=== PATIENT | female | born 1940 | race Caucasian/White ===

== ENCOUNTER 2023-01-26 16:43 | Inpatient (IN) | payer MEDICARE ==
[2023-01-26] MEDS ORDERED: SODIUM CHLORIDE 0.9% 1,000 ML IV ONE (16:58)
[2023-01-26] MEDS ORDERED: ASPIRIN 325 MG TAB PO STA (16:58)
--- NOTE | 2023-01-26 17:11 | ED ---
General Adult HPI - General Chief complaint: Chest Pain Stated complaint: ENT/blood pressure Time Seen by Provider: 01/26/23 16:50 Source: patient, RN notes reviewed Mode of arrival: ambulatory Limitations: no limitations - History of Present Illness Initial comments: 82 year old female with no significant past medical history presents to the emergency department with a chief complaint of chest pain. She reports she was at the store at approximately 3PM when she felt a brief episode of sharp chest pain, dizziness, and sweating after carrying in the groceries. She reports she is currently having the chest pain however describes it as a tightness and rates it a 5/10 and feels a tightness in her throat. She reports the sensation at rest. Denies known cardiac history. Patient is a non-smoker - Related Data Home Medications Medication Instructions Recorded Confirmed Aspirin EC [Ecotrin Low Dose] 81 mg PO DAILY 01/26/23 01/26/23 Betamethasone Dipropionate 1 applic TOPICAL BID PRN 01/26/23 01/26/23 [Diprolene AF 0.05% Cream] Cholecalciferol [Vitamin D3 (25 25 mcg PO DAILY 01/26/23 01/26/23 Mcg = 1000 Iu)] Cinnamon Bark [Cinnamon] 500 mg PO DAILY 01/26/23 01/26/23 Cyanocobalamin (Vitamin B-12) 1,000 mcg PO DAILY 01/26/23 01/26/23 [Vitamin B-12] Levothyroxine Sodium [Synthroid] 100 mcg PO DAILY 01/26/23 01/26/23 Ubidecarenone [Coenzyme Q10] 200 mg PO DAILY 01/26/23 01/26/23 Allergies Allergy/AdvReac Type Severity Reaction Status Date / Time No Known Allergies Allergy Verified 01/26/23 18:35 Review of Systems ROS Statement: Those systems with pertinent positive or pertinent negative responses have been documented in the HPI. ROS Other: All systems not noted in ROS Statement are negative. Past Medical History Past Medical History: Thyroid Disorder History of Any Multi-Drug Resistant Organisms: None Reported Past Surgical History: No Surgical Hx Reported Past Psychological History: No Psychological Hx Reported Smoking Status: Never smoker Past Alcohol Use History: Occasional Past Drug Use History: None Reported General Exam Limitations: no limitations General appearance: alert Head exam: Present: atraumatic, normocephalic, normal inspection Eye exam: Present: normal appearance, PERRL, EOMI. Absent: scleral icterus, conjunctival injection, periorbital swelling ENT exam: Present: normal exam, mucous membranes moist Neck exam: Present: normal inspection. Absent: tenderness, meningismus, lymphad enopathy Respiratory exam: Present: normal lung sounds bilaterally. Absent: respiratory distress, wheezes, rales, rhonchi, stridor Cardiovascular Exam: Present: regular rate, normal rhythm, normal heart sounds. Absent: systolic murmur, diastolic murmur, rubs, gallop, clicks GI/Abdominal exam: Present: soft, normal bowel sounds. Absent: distended, tenderness, guarding, rebound, rigid Extremities exam: Present: normal inspection, full ROM, normal capillary refill. Absent: tenderness, pedal edema, joint swelling, calf tenderness Back exam: Present: normal inspection Neurological exam: Present: alert, oriented X3, CN II-XII intact Psychiatric exam: Present: normal affect, normal mood Skin exam: Present: warm, dry, intact, normal color. Absent: rash Course Vital Signs 01/26/23 01/26/23 01/26/23 16:45 18:00 19:00 Temperature 97.7 F Pulse Rate 70 72 Respiratory 20 18 Rate Blood Pressure 139/86 151/88 150/90 O2 Sat by Pulse 99 94 L 95 Oximetry - Reevaluation(s) Reevaluation #1: 01/26/23 18:06 Patient re-evaluated. Patient reports chest tightness and pain in between her sh oulder blades Reevaluation #2: 01/26/23 18:[address] Pantoja who recommends giving the patient nitroglycerin and to wait until Ct angiogram results Reevaluation #3: 01/26/23 19:13 Pt re-evaluated. Patient reports symptomatic relief status post 1 Nitroglycerin. She is agreeable with the plan for admission. Reevaluation #4: 01/26/23 19:[address] Foy who agrees and accepts the patient for admission EKG Findings - EKG Comments: EKG Findings:: I interpreted the following: EKG performed at 16:56 rate 71 BPM, sinus rhythm. 1st degree block, RBBB. [place] interval 281, QRS duration 148, Qt/Qtc 412/436 Medical Decision Making - Medical Decision Making Was pt. sent in by a medical professional or institution (LESLIE Leija, [employer]IST[employer], urgent care, hospital, or [facility]...) When possible be specific @ -[No] Did you speak to anyone other than the patient for history (EMS, parent, family, police, friend...)? What history was obtained from this source @ -[No] Did you review nursing and triage notes (agree or disagree)? Why? @ -[I reviewed and agree with nursing and triage notes] Were old charts reviewed (outside hosp., previous admission, EMS record, old EKG, old radiological studies, urgent care reports/EKG's, [facility] records)? Report findings @ -[No old charts were reviewed] Differential Diagnosis (chest pain, altered mental status, abdominal pain women, abdominal pain men, vaginal bleeding, weakness, fever, dyspnea, syncope, headache, dizziness, GI bleed, back pain, seizure, CVA, palpatations, mental health, musculoskeletal)? @ -[not applicable] EKG interpreted by me (3pts min.). @ -[As above] X-rays interpreted by me (1pt min.). @ -Chest x-ray reveals cardiomegaly and COPD changes CT interpreted by me (1pt min.). @ -CT angiogram to rule out PE is negative for pulmonary embolism U/S interpreted by me (1pt. min.). @ -[None done] What testing was considered but not performed or refused? (CT, X-rays, U/S, labs)? Why? @ -[None] What meds were considered but not given or refused? Why? @ -[None] Did you discuss the management of the patient with other professionals (professionals i.e. LESLIE Leija, [employer] MEDICAL ASSISTANT, lab, RT, psych nurse, health and social care teacher, hollow tile partition erector, teacher, public health officer, caser in)? Give summary @ -Case discussed with Dr. Pantoja who recommends giving the patient nitroglycerin. Case discussed with Dr. Foy, [facility] who agrees and accepts the patient for admission with consult to cardiology Was smoking cessation discussed for >3mins.? @ -[No] Was critical care preformed (if so, how long)? @ -[No] Were there social determinants of health that impacted care today? How? (Homelessness, low income, unemployed, alcoholism, drug addiction, transportation, low edu. Level, literacy, decrease access to med. care, assisted, rehab)? @ -[No] Was there de-escalation of care discussed even if they declined (Discuss DNR or withdrawal of care, Hospice)? DNR status @ -[No] What co-morbidities impacted this encounter? (DM, HTN, Smoking, COPD, CAD, Cancer, CVA, ARF, Chemo, Hep., AIDS, mental health diagnosis, sleep apnea, morb id obesity)? @ -[None] Was patient admitted / discharged? Hospital course, mention meds given and route, prescriptions, significant lab abnormalities, going to OR and other pertinent info. @ -[Admission. This is a pleasant 82-year-old female with no significant past medical history presents to the emergency department with chest pain. Patient had a thorough history and physical Performed on the emergency department. Physical exam is essentially unremarkable. Heart rate regular rate and rhythm, lungs clear to auscultation bilaterally, abdomen soft and nontender. Vital signs remained stable. Patient had lab work and imaging performed which revealed: WBC 7.9, hemoglobin 11.9 d-dimer is 2.8 to sodium 134, potassium 3.7 BUN 14, creatinine 0.59 initial troponin is 0.282 BNP is 530 Covid influenza and RSV testing negative. Chest x-ray is reveals cardiomegaly with interstitial lung disease and COPD changes I discussed the results in detail with the patient verbalized understanding all questions were addressed. She is agreeable with the plan for admission for further observation and consult to cardiology. Case discussed with [facility] who agrees and accepts the patient. Patient was given aspirin, nitroglycerin, 1 L of IV fluids with symptomatic relief in the emergency department. She'll be admitted for trending troponin value and cardiology evaluation. Case discussed with ODILIA Hill who agrees with plan of care Undiagnosed new problem with uncertain prognosis? @ -[No] Drug Therapy requiring intensive monitoring for toxicity (Heparin, Nitro, Ins ulin, Cardizem)? @ -[No] Were any procedures done? @ -[No] Diagnosis/symptom? @ -Chest Pain -Non-STEMI - Right Bundle Branch Block Acute, or Chronic, or Acute on Chronic? @ -Acute Uncomplicated (without systemic symptoms) or Complicated (systemic symptoms)? @ -Complicated Side effects of treatment? @ -[No] Exacerbation, Progression, or Severe Exacerbation? @ -[No] Poses a threat to life or bodily function? How? (Chest pain, [place], [place], pneumonia, PE, COPD, DKA, ARF, appy, cholecystitis, CVA, Diverticulitis, Homicidal, Suicidal, threat to staff... and all critical care pts) @ -High likelihood - Lab Data Result diagrams: 01/26/23 19:40 01/26/23 17:07 Lab Results 01/26/23 01/26/23 01/26/23 Range/Units 17:07 17:07 17:07 WBC 7.9 (3.8-10.6) k/uL RBC 3.92 (3.80-5.40) m/uL Hgb 11.9 (11.4-16.0) gm/dL Hct 35.1 (34.0-46.0) % MCV 89.7 (80.0-100.0) fL MCH 30.3 (25.0-35.0) pg MCHC 33.8 (31.0-37.0) g/dL RDW 15.6 H (11.5-15.5) % Plt Count 226 (150-450) k/uL MPV 8.9 Neutrophils % 70 % Lymphocytes % 17 % Monocytes % 5 % Eosinophils % 6 % Basophils % 0 % Neutrophils # 5.5 (1.3-7.7) k/uL Lymphocytes # 1.4 (1.0-4.8) k/uL Monocytes # 0.4 (0-1.0) k/uL Eosinophils # 0.5 (0-0.7) k/uL Basophils # 0.0 (0-0.2) k/uL PT 9.9 (9.0-12.0) sec INR 0.9 (<1.2) APTT 21.3 L (22.0-30.0) sec D-Dimer 2.82 H (<0.60) mg/L FEU Sodium 134 L (137-145) mmol/L Potassium 3.7 (3.5-5.1) mmol/L Chloride 99 (98-107) mmol/L Carbon Dioxide 25 (22-30) mmol/L Anion Gap 10 mmol/L BUN 14 (7-17) mg/dL Creatinine 0.59 (0.52-1.04) mg/dL Est GFR (CKD-EPI)AfAm >90 (>60 ml/min/1.73 sqM) Est GFR (CKD-EPI)NonAf 85 (>60 ml/min/1.73 sqM) Glucose 130 H (74-99) mg/dL Calcium 10.0 (8.4-10.2) mg/dL Magnesium 2.1 (1.6-2.3) mg/dL Total Bilirubin 0.5 (0.2-1.3) mg/dL AST 37 H (14-36) U/L ALT 24 (4-34) U/L Alkaline Phosphatase 86 (38-126) U/L Troponin I (0.000-0.034) ng/mL NT-Pro-B Natriuret Pep pg/mL Total Protein 7.7 (6.3-8.2) g/dL Albumin 4.4 (3.5-5.0) g/dL Influenza Type A (PCR) (Not Detectd) Influenza Type B (PCR) (Not Detectd) RSV (PCR) (Not Detectd) SARS-CoV-2 (PCR) (Not Detectd) 01/26/23 01/26/23 01/26/23 Range/Units 17:07 17:07 17:07 WBC (3.8-10.6) k/uL RBC (3.80-5.40) m/uL Hgb (11.4-16.0) gm/dL Hct (34.0-46.0) % MCV (80.0-100.0) fL MCH (25.0-35.0) pg MCHC (31.0-37.0) g/dL RDW (11.5-15.5) % Plt Count (150-450) k/uL MPV Neutrophils % % Lymphocytes % % Monocytes % % Eosinophils % % Basophils % % Neutrophils # (1.3-7.7) k/uL Lymphocytes # (1.0-4.8) k/uL Monocytes # (0-1.0) k/uL Eosinophils # (0-0.7) k/uL Basophils # (0-0.2) k/uL PT (9.0-12.0) sec INR (<1.2) APTT (22.0-30.0) sec D-Dimer (<0.60) mg/L FEU Sodium (137-145) mmol/L Potassium (3.5-5.1) mmol/L Chloride (98-107) mmol/L Carbon Dioxide (22-30) mmol/L Anion Gap mmol/L BUN (7-17) mg/dL Creatinine (0.52-1.04) mg/dL Est GFR (CKD-EPI)AfAm (>60 ml/min/1.73 sqM) Est GFR (CKD-EPI)NonAf (>60 ml/min/1.73 sqM) Glucose (74-99) mg/dL Calcium (8.4-10.2) mg/dL Magnesium (1.6-2.3) mg/dL Total Bilirubin (0.2-1.3) mg/dL AST (14-36) U/L ALT (4-34) U/L Alkaline Phosphatase (38-126) U/L Troponin I 0.282 H* (0.000-0.034) ng/mL NT-Pro-B Natriuret Pep 530 pg/mL Total Protein (6.3-8.2) g/dL Albumin (3.5-5.0) g/dL Influenza Type A (PCR) Not Detected (Not Detectd) Influenza Type B (PCR) Not Detected (Not Detectd) RSV (PCR) Not Detected (Not Detectd) SARS-CoV-2 (PCR) Not Detected (Not Detectd) 01/26/23 01/26/23 Range/Units 19:40 19:40 WBC 8.1 (3.8-10.6) k/uL RBC 3.61 L (3.80-5.40) m/uL Hgb 10.4 L (11.4-16.0) gm/dL Hct 32.3 L (34.0-46.0) % MCV 89.4 (80.0-100.0) fL MCH 28.9 (25.0-35.0) pg MCHC 32.3 (31.0-37.0) g/dL RDW 15.5 (11.5-15.5) % Plt Count 222 (150-450) k/uL MPV 9.7 Neutrophils % 80 % Lymphocytes % 12 % Monocytes % 5 % Eosinophils % 2 % Basophils % 0 % Neutrophils # 6.4 (1.3-7.7) k/uL Lymphocytes # 1.0 (1.0-4.8) k/uL Monocytes # 0.4 (0-1.0) k/uL Eosinophils # 0.2 (0-0.7) k/uL Basophils # 0.0 (0-0.2) k/uL PT 10.3 (9.0-12.0) sec INR 1.0 (<1.2) APTT 20.2 L (22.0-30.0) sec D-Dimer (<0.60) mg/L FEU Sodium (137-145) mmol/L Potassium (3.5-5.1) mmol/L Chloride (98-107) mmol/L Carbon Dioxide (22-30) mmol/L Anion Gap mmol/L BUN (7-17) mg/dL Creatinine (0.52-1.04) mg/dL Est GFR (CKD-EPI)AfAm (>60 ml/min/1.73 sqM) Est GFR (CKD-EPI)NonAf (>60 ml/min/1.73 sqM) Glucose (74-99) mg/dL Calcium (8.4-10.2) mg/dL Magnesium (1.6-2.3) mg/dL Total Bilirubin (0.2-1.3) mg/dL AST (14-36) U/L ALT (4-34) U/L Alkaline Phosphatase (38-126) U/L Troponin I (0.000-0.034) ng/mL NT-Pro-B Natriuret Pep pg/mL Total Protein (6.3-8.2) g/dL Albumin (3.5-5.0) g/dL Influenza Type A (PCR) (Not Detectd) Influenza Type B (PCR) (Not Detectd) RSV (PCR) (Not Detectd) SARS-CoV-2 (PCR) (Not Detectd) Disposition Clinical Impression: Chest pain, Non-STEMI (non-ST elevated myocardial infarction), Right bundle branch block (RBBB) Disposition: ADMITTED IP TO THIS HOSP Condition: Stable Time of Disposition: 19:05
[2023-01-26 17:21] LABS: Basophils % (A) 0 %; Eosinophils # (A) 0.5 k/uL (0-0.7); Eosinophils % (A) 6 %; HCT 35.1 % (34.0-46.0); HGB 11.9 gm/dL (11.4-16.0); Lymphocytes # (A) 1.4 k/uL (1.0-4.8); Lymphocytes % (A) 17 %; MCH 30.3 pg (25.0-35.0); MCHC 33.8 g/dL (31.0-37.0); MCV 89.7 fL (80.0-100.0); Mean Platelet Volume 8.9; Monocytes # (A) 0.4 k/uL (0-1.0); Monocytes % (A) 5 %; Neutrophils # (A) 5.5 k/uL (1.3-7.7); Neutrophils % (A) 70 %; Platelet Count 226 k/uL (150-450); RBC 3.92 m/uL (3.80-5.40); RDW 15.6 % (11.5-15.5); WBC 7.9 k/uL (3.8-10.6)
[2023-01-26 17:33] LABS: ALT 24 U/L (4-34); AST 37 U/L (14-36); African American GFR (CKD) >90 (>60 ml/min/1.73 sqM); Albumin 4.4 g/dL (3.5-5.0); Alkaline Phosphatase 86 U/L (38-126); Anion Gap 10 mmol/L; Blood Urea Nitrogen 14 mg/dL (7-17); Carbon Dioxide 25 mmol/L (22-30); Chloride 99 mmol/L (98-107); Glucose 130 mg/dL (74-99); Magnesium 2.1 mg/dL (1.6-2.3); Non-African American GFR(CKD) 85 (>60 ml/min/1.73 sqM); Potassium 3.7 mmol/L (3.5-5.1); Sodium 134 mmol/L (137-145); Total Bilirubin 0.5 mg/dL (0.2-1.3); Total Protein 7.7 g/dL (6.3-8.2)
[2023-01-26 17:43] LABS: INR 0.9 (<1.2); Prothrombin Time 9.9 sec (9.0-12.0)
--- NOTE | 2023-01-26 17:47 | XR ---
EXAMINATION TYPE: XR chest 2V DATE OF EXAM: 01/26/2023 5:22 PM COMPARISON: None TECHNIQUE: XR chest 2V Frontal and lateral views of the chest. CLINICAL INDICATION:Female, 82 years old with history of CP; FINDINGS: Lungs/Pleura: Prominent interstitial lung markings are seen scattered throughout the lungs with jonathon ening of the diaphragm and increased lucency of the lung apices. No evidence of focal consolidation, pneumothorax or pleural effusion. Pulmonary vascularity: Unremarkable. Heart/mediastinum: Cardiomediastinal silhouette is enlarged and stable. Atherosclerotic calcificatio ns are seen in the aorta. Musculoskeletal: No acute osseous pathology. IMPRESSION: 1. No acute cardiopulmonary disease/process. 2. And interstitial lung disease with COPD change 3. Cardiomegaly
[2023-01-26 17:55] LABS: Partial Thromboplastin Time 21.3 sec (22.0-30.0)
[2023-01-26] MEDS ORDERED: HEPARIN SODIUM 1,000 UN/ML (10ML VL) IV PRN ×2 (18:05→19:13)
[2023-01-26] MEDS ORDERED: HEPARIN SODIUM 1,000 UN/ML (10ML VL) IV ONE ×2 (18:05→19:13)
[2023-01-26] MEDS ORDERED: NITROGLYCERIN SL TABS 0.4 MG TAB SUBLINGUAL PRN (18:09)
[2023-01-26] MEDS ORDERED: HEPARIN SOD,PORK IN 0.45% NACL 25,000 UNIT in 0.45% NACL 1 250ML.BAG IV SCH ×2 (18:15→19:15)
--- NOTE | 2023-01-26 18:56 | CT ---
EXAMINATION TYPE: CT chest angio for PE CT DLP: 223.2 mGycm, Automated exposure control for dose reduction was used. DATE OF EXAM: 01/26/2023 6:29 PM COMPARISON: Chest radiograph from same day. CLINICAL INDICATION:Female, 82 years old with history of Dimer 2.82; Chest pain and pressure, was pearl phoretic earlier and felt like passing out, elevated d-dimer, no personal cardiac hx TECHNIQUE/CONTRAST: CTA scan of the thorax is performed with IV Contrast, patient injected with 100 mL of Isovue 370, pul monary embolism protocol. MIP images are created and reviewed [facility] FINDINGS: Pulmonary Artery: There is no evidence for a filling defect within the pulmonary vasculature to sugge st acute pulmonary embolism. The pulmonary artery is of normal size. Lungs/Pleura: Centrally calcified granuloma in the lingula. Interlobular septal thickening is noted.. No evidence of focal consolidation, pleural effusion or pneumothorax. Airway: Large airways are patent. Heart: Heart is within normal limits for size. Vasculature: No evidence of aortic aneurysm. There is a moderate to large hiatal hernia containing a majority of the stomach. Mediastinum: No gross evidence of adenopathy. Musculoskeletal: Moderate degenerative disc disease changes are present throughout the thoracolumbar spine. Soft Tissues: Unremarkable. Lower neck: No significant findings. Upper Abdomen: Somewhat nodular contour to liver. IMPRESSION: 1. No evidence of pulmonary embolism. 2. Moderate to large hiatal hernia the majority of the stomach. 3. Cardiomegaly with pulmonary vascular congestion correlate with serum BNP for congestive heart fail ure exacerbation. 4. Centrally calcified lingula granuloma.
[2023-01-26] MEDS ORDERED: MORPHINE SULFATE 4 MG/ML SYRINGE IV PRN (19:33)
[2023-01-26] MEDS ORDERED: NALOXONE 0.4 MG/ML 1 ML VIAL IV PRN (19:33)
[2023-01-26 20:17] LABS: Basophils % (A) 0 %; Eosinophils # (A) 0.2 k/uL (0-0.7); Eosinophils % (A) 2 %; HCT 32.3 % (34.0-46.0); HGB 10.4 gm/dL (11.4-16.0); Lymphocytes % (A) 12 %; MCH 28.9 pg (25.0-35.0); MCHC 32.3 g/dL (31.0-37.0); MCV 89.4 fL (80.0-100.0); Mean Platelet Volume 9.7; Monocytes # (A) 0.4 k/uL (0-1.0); Monocytes % (A) 5 %; Neutrophils # (A) 6.4 k/uL (1.3-7.7); Neutrophils % (A) 80 %; Platelet Count 222 k/uL (150-450); RBC 3.61 m/uL (3.80-5.40); RDW 15.5 % (11.5-15.5); WBC 8.1 k/uL (3.8-10.6)
[2023-01-26 20:37] LABS: Prothrombin Time 10.3 sec (9.0-12.0)
[2023-01-26 20:55] LABS: Partial Thromboplastin Time 20.2 sec (22.0-30.0)
[2023-01-26] MEDS: SODIUM CHLORIDE 0.9% 1,000 ML IV SCH (22:52)
[2023-01-27 02:58] LABS: Basophils % (A) 0 %; Eosinophils # (A) 0.1 k/uL (0-0.7); Eosinophils % (A) 2 %; HCT 34.3 % (34.0-46.0); HGB 11.3 gm/dL (11.4-16.0); Hypochromasia Slight; Lymphocytes % (A) 13 %; MCH 30.3 pg (25.0-35.0); MCHC 32.9 g/dL (31.0-37.0); Mean Platelet Volume 9.2; Monocytes # (A) 0.3 k/uL (0-1.0); Monocytes % (A) 4 %; Neutrophils # (A) 6.3 k/uL (1.3-7.7); Neutrophils % (A) 79 %; Platelet Count 200 k/uL (150-450); RBC 3.73 m/uL (3.80-5.40); RDW 15.7 % (11.5-15.5); WBC 7.9 k/uL (3.8-10.6)
[2023-01-27 03:11] LABS: Partial Thromboplastin Time 63.9 sec (22.0-30.0); Prothrombin Time 10.6 sec (9.0-12.0)
[2023-01-27] MEDS ORDERED: HEPARIN SODIUM,PORCINE 10,000 UNIT in SODIUM CHLORIDE 0.9% 1,000 ML IRRIGATION PRN (07:00)
[2023-01-27] MEDS ORDERED: HEPARIN SODIUM,PORCINE 2,500 UNIT in SODIUM CHLORIDE 0.9% 250 ML IRRIGATION PRN (07:00)
[2023-01-27] MEDS ORDERED: ATORVASTATIN 80 MG TAB PO STA (08:54)
[2023-01-27] MEDS ORDERED: ASPIRIN 325 MG TAB PO STA (08:54)
[2023-01-27] MEDS ORDERED: NITROGLYCERIN SL TABS 0.4 MG TAB SUBLINGUAL PRN (08:54)
[2023-01-27] MEDS ORDERED: ALPRAZolam 0.25 MG TAB PO PRN (08:54)
[2023-01-27] MEDS ORDERED: ALPRAZolam 0.5 MG TAB PO PRN (08:54)
[2023-01-27] MEDS: ASPIRIN 81 MG PO SCH (09:10)
[2023-01-27] MEDS: SODIUM CHLORIDE 0.9% 1,000 ML IV SCH ×2 (09:10→20:40)
--- NOTE | 2023-01-27 09:17 | P.CRDCN ---
History of Present Illness History of present illness: HISTORY OF PRESENT ILLNESS: This is a 82-year-old female with a past medical history significant for hypothyroidism. Patient does not follow with a bow maker. We have been asked to see the patient in consultation for chest pain. Patient examined at the bedside. Patient resides in [place] and is up here helping a family member. She states yesterday she was at the grocery store with her [id number]. She states afterward she was carrying groceries inside the house when she be and have chest pain. She states the pain was in the middle of her chest and went up into her throat. She reports feeling diaphoretic. She reported having nausea but no vomiting. She states that she called her daughter and came to the emergency room for further evaluation. She received aspirin and nitro in the ER. She denies any chest pain or pressure this morning. She denies any history of coronary artery disease. She is a former cigarette smoker and quit smoking in 1964. She denies history of hypertension, hyperlipidemia, or diabetes. * EKG reveals sinus mechanism with right bundle branch block. No signs of acute ischemia. * Chest xray no acute cardiopulmonary disease or process. Interstitial lung disease with COPD changes. Cardiomegaly * Laboratory data: WBC 7.9. WBC 11.3. Platelet count 200. D-dimer 2.82. Sodium 134. Potassium 3.7. BUN 14. Creatinine 0.59. Troponin 0.282. 5.320. 10.100. ProBNP 530. * Current home cardiac medications include aspirin 81 mg daily REVIEW OF SYSTEMS: At the time of my exam: CONSTITUTIONAL: Denies fever or chills. HEENT: Denies blurred vision, vision changes, or eye pain. Denies hemoptysis CARDIOVASCULAR: Denies chest pain. Denies orthopnea. Denies PND. Denies palpitations RESPIRATORY: Denies shortness of breath. GASTROINTESTINAL: Denies abdominal pain. Denies nausea or vomiting. HEMATOLOGIC: Denies bleeding disorders. GENITOURINARY: Denies any blood in urine. SKIN: Denies pruitis. Denies rash. PHYSICAL EXAM: VITAL SIGNS: Reviewed. GENERAL: Well-developed in no acute distress. HEENT: Head is normocephalic. Pupils are equal, round. Sclerae anicteric. Mucous membranes of the mouth are moist. Neck supple. No JVD or thyromegaly LUNGS: Respirations even and unlabored. Lungs essentially clear to auscultation bilaterally. HEART: Regular rate and rhythm. S1 and S2 heard. ABDOMEN: Soft. Nondistended. Nontender. EXTREMITIES: Normal range of motion. No clubbing or cyanosis. Peripheral pulses intact. No lower extremity edema NEUROLOGIC: Awake and alert. Oriented x 3. ASSESSMENT: Non-STEMI Hypothyroidism Former nicotine dependence, patient quit smoking in 1964 PLAN: Obtain 2-D echo to assess cardiac structure and function Continue IV heparin Add aspirin 81 mg daily, Lipitor 80 mg at night, and metoprolol tartrate 12.5 mg twice a day Patient to undergo cardiac catheterization today with Dr. Fajardo Further recommendations pending patient's course Nurse practitioner note has been reviewed by physician. Signing provider agrees with the documented findings, assessment, and plan of care. Past Medical History Past Medical History: Thyroid Disorder History of Any Multi-Drug Resistant Organisms: None Reported Past Surgical History: Breast Surgery, Hysterectomy Additional Past Surgical History / Comment(s): hemorrhoids Past Anesthesia/Blood Transfusion Reactions: No Reported Reaction Past Psychological History: No Psychological Hx Reported Smoking Status: Never smoker Past Alcohol Use History: Occasional Past Drug Use History: None Reported - Past Family History Father Family Medical History: Myocardial Infarction ([place]) Medications and Allergies Home Medications Medication Instructions Recorded Confirmed Type Aspirin EC [Ecotrin Low Dose] 81 mg PO DAILY 01/26/23 01/26/23 History Betamethasone Dipropionate 1 applic TOPICAL BID PRN 01/26/23 01/26/23 History [Diprolene AF 0.05% Cream] Cholecalciferol [Vitamin D3 (25 25 mcg PO DAILY 01/26/23 01/26/23 History Mcg = 1000 Iu)] Cinnamon Bark [Cinnamon] 500 mg PO DAILY 01/26/23 01/26/23 History Cyanocobalamin (Vitamin B-12) 1,000 mcg PO DAILY 01/26/23 01/26/23 History [Vitamin B-12] Levothyroxine Sodium [Synthroid] 100 mcg PO DAILY 01/26/23 01/26/23 History Ubidecarenone [Coenzyme Q10] 200 mg PO DAILY 01/26/23 01/26/23 History Allergies Allergy/AdvReac Type Severity Reaction Status Date / Time No Known Allergies Allergy Verified 01/26/23 18:35 Physical Exam Vitals: Vital Signs Temp Pulse Pulse Resp BP BP Pulse Ox 01/27/23 04:00 70 17 126/73 93 L 01/27/23 00:58 97.8 F 74 16 144/84 94 L 01/26/23 22:00 71 16 132/86 01/26/23 21:00 137/81 90 L 01/26/23 20:00 135/82 01/26/23 19:00 150/90 95 01/26/23 18:00 72 18 151/88 94 L 01/26/23 16:45 97.7 F 70 20 139/86 99 Intake and Output 01/26/23 01/27/23 01/27/23 22:59 06:59 14:59 Other: Voiding Method Toilet # Voids 1 Weight 61.235 kg 61.235 kg Results 01/27/23 02:24 01/26/23 17:07 Cardiac Enzymes 01/26/23 01/26/23 01/26/23 Range/Units 17:07 17:07 21:00 AST 37 H (14-36) U/L Troponin I 0.282 H* 5.320 H* (0.000-0.034) ng/mL 01/27/23 Range/Units 00:20 AST (14-36) U/L Troponin I 10.100 H* (0.000-0.034) ng/mL Coagulation 01/26/23 01/26/23 01/27/23 Range/Units 17:07 19:40 02:24 PT 9.9 10.3 10.6 (9.0-12.0) sec APTT 21.3 L 20.2 L 63.9 H (22.0-30.0) sec CBC 01/26/23 01/26/23 01/27/23 Range/Units 17:07 19:40 02:24 WBC 7.9 8.1 7.9 (3.8-10.6) k/uL RBC 3.92 3.61 L 3.73 L (3.80-5.40) m/uL Hgb 11.9 10.4 L 11.3 L (11.4-16.0) gm/dL Hct 35.1 32.3 L 34.3 (34.0-46.0) % Plt Count 226 222 200 (150-450) k/uL Comprehensive Metabolic Panel 01/26/23 Range/Units 17:07 Sodium 134 L (137-145) mmol/L Potassium 3.7 (3.5-5.1) mmol/L Chloride 99 (98-107) mmol/L Carbon Dioxide 25 (22-30) mmol/L BUN 14 (7-17) mg/dL Creatinine 0.59 (0.52-1.04) mg/dL Glucose 130 H (74-99) mg/dL Calcium 10.0 (8.4-10.2) mg/dL AST 37 H (14-36) U/L ALT 24 (4-34) U/L Alkaline Phosphatase 86 (38-126) U/L Total Protein 7.7 (6.3-8.2) g/dL Albumin 4.4 (3.5-5.0) g/dL Current Medications Generic Name Dose Route Start Last Admin Trade Name Freq PRN Reason Stop Dose Admin Aspirin 81 mg 01/27/23 09:00 Aspirin 81 Mg PO DAILY NILS Atorvastatin Calcium 80 mg 01/27/23 21:00 Atorvastatin 80 Mg Tab PO HS NILS Heparin Sodium (Porcine) 0 unit 01/26/23 19:13 Heparin Sodium 1,000 Un/Ml (10ml Vl) IV PER PROTOCOL PRN Low PTT Protocol Heparin Sodium/Sodium Chloride 250 mls @ 7.348 mls/hr 01/26/23 19:15 01/26/23 20:07 25,000 unit/ Sodium Chloride IV 12 units/kg/hr .Q24H NILS 7.348 mls/hr Administration Protocol 12 UNITS/KG/HR Sodium Chloride 1,000 mls @ 75 mls/hr 01/26/23 19:45 01/26/23 22:52 Saline 0.9% IV 75 mls/hr .[id number] NILS Administration Morphine Sulfate 4 mg 01/26/23 19:33 Morphine Sulfate 4 Mg/Ml Syringe IV Q4HR PRN Severe Pain (Scale 7 to 10) Naloxone HCl 0.2 mg 01/26/23 19:33 Naloxone 0.4 Mg/Ml 1 Ml Vial IV Q2M PRN Opioid Reversal Nitroglycerin 0.4 mg 01/26/23 18:09 01/26/23 18:31 Nitroglycerin Sl Tabs 0.4 Mg Tab SUBLINGUAL 0.4 mg Q5M PRN Administration Chest Pain Intake and Output 01/26/23 01/27/23 01/27/23 22:59 06:59 14:59 Other: Voiding Method Toilet # Voids 1 Weight 61.235 kg 61.235 kg 01/27/23 02:24 01/26/23 17:07
[2023-01-27] MEDS: METOPROLOL TARTRATE 12.5 MG TAB PO SCH ×2 (09:23→20:33)
[2023-01-27] MEDS: SODIUM CHLORIDE 0.9% 1,000 ML in EMPTY BAG 1 BAG IV SCH (09:24)
[2023-01-27] MEDS ORDERED: LIDOCAINE 1% INJ 10MG/ML (20 ML MDV) ONE (10:26)
[2023-01-27] MEDS ORDERED: VERAPAMIL 2.5 MG/ML 2 ML AMP ONE (10:26)
[2023-01-27] MEDS ORDERED: HEPARIN SODIUM 1,000 UN/ML (10ML VL) ONE (10:48)
[2023-01-27] MEDS ORDERED: IV FLUID CONTINUATION 1,000 ML IV ONE (11:00)
[2023-01-27] MEDS ORDERED: MIDAZOLAM 2 MG/2 ML VIAL IVP ONE (11:08)
[2023-01-27] MEDS ORDERED: LIDOCAINE 1% INJ 10MG/ML (5 ML VIAL-PF) SQ ONE (11:09)
[2023-01-27] MEDS ORDERED: VERAPAMIL SYRINGE (5 MG/10 ML) INTRAARTER ONE (11:11)
[2023-01-27] MEDS ORDERED: fentaNYL (PF) 50 MCG/ML 2 ML AMP ONE (11:11)
[2023-01-27] MEDS ORDERED: fentaNYL (PF) 50 MCG/ML 2 ML AMP IVP ONE (11:12)
[2023-01-27] MEDS ORDERED: HEPARIN SODIUM 1,000 UN/ML (10ML VL) IV ONE (11:12)
[2023-01-27] MEDS ORDERED: IOPAMIDOL-370 100ML BTL INJ ONE (11:41)
--- NOTE | 2023-01-27 11:53 | CA ---
Transthoracic Echo Report Name: Gema Gloria Age: 82 Gender: F : 1940 Exam Date: 01/27/2023 09:53 Exam Location: [facility] Ht (in): 61 Wt (lb): 135 Ordering Physician: Radha Salgado Attending/Referring Phys: [id number], Damian Engine Pilot Cora Montenegro RDCS Procedure CPT: Indications: CP, NSTEMI Cardiac Hx: Technical Quality: Good Contrast 1: Total Dose (mL): Contrast 2: Total Dose (mL): MEASUREMENTS (Male / Female) Normal Values 2D ECHO LV Diastolic Diameter PLAX 4.3 cm 4.2 - 5.9 / 3.9 - 5.3 cm LV Systolic Diameter PLAX 2.6 cm IVS Diastolic Thickness 1.0 cm 0.6 - 1.0 / 0.6 - 0.9 cm LVPW Diastolic Thickness 1.0 cm 0.6 - 1.0 / 0.6 - 0.9 cm LV Relative Wall Thickness 0.5 RV Internal Dim ED PLAX 2.6 cm LVOT Diameter 1.9 cm Aortic Root Diameter 2.6 cm LA Systolic Diameter LX 2.4 cm 3.0 - 4.0 / 2.7 - 3.8 cm LV Diastolic Volume MOD BP 57.8 cm??? 67 - 155 / 56 - 104 cm??? LV Systolic Volume MOD BP 29.6 cm??? 22 - 58 / 19 - 49 cm??? LV Ejection Fraction MOD BP 48.7 % >= 55 % LV Diastolic Volume MOD 4C 67.3 cm??? LV Systolic Volume MOD 4C 29.7 cm??? LV Ejection Fraction MOD 4C 55.9 % LV Diastolic Length 4C 5.9 cm LV Systolic Length 4C 5.2 cm LV Diastolic Volume MOD 2C 43.9 cm??? LV Systolic Volume MOD 2C 23.8 cm??? LV Ejection Fraction MOD 2C 45.8 % LV Diastolic Length 2C 5.2 cm LV Systolic Length 2C 4.2 cm LA Volume 50.2 cm??? 18 - 58 / 22 - 52 cm??? Ascending Aorta Diameter 3.0 cm DOPPLER AV Peak Velocity 151.2 cm/s AV Peak Gradient 9.1 mmHg AI Peak Velocity 376.8 cm/s AI Peak Gradient 56.8 mmHg AI Pressure Half Time 478.5 ms LVOT Peak Velocity 97.1 cm/s LVOT Peak Gradient 3.8 mmHg AV Area Cont Eq pk 1.8 cm??? MV Peak Velocity 130.7 cm/s MV Peak Gradient 6.8 mmHg MV Mean Velocity 64.5 cm/s MV Mean Gradient 2.0 mmHg MV Velocity Time Integral 27.8 cm MR Peak Velocity 539.2 cm/s MR Peak Gradient 116.3 mmHg Mitral E Point Velocity 110.4 cm/s Mitral A Point Velocity 46.5 cm/s Mitral E to A Ratio 2.4 MV Deceleration Time 137.1 ms MV E' Velocity 8.2 cm/s Mitral E to MV E' Ratio 13.5 TR Peak Velocity 314.4 cm/s TR Peak Gradient 39.5 mmHg Right Ventricular Systolic Press 44.6 mmHg PV Peak Velocity 91.8 cm/s PV Peak Gradient 3.4 mmHg FINDINGS Left Ventricle Left ventricular ejection fraction is estimated at 50-55 %. Left ventricular cavity size normal. Left ventricular wall thickness normal. Basal inferior hypokinesis Right Ventricle Normal right ventricular size and function. Mild pulmonary hypertension. Right Atrium Normal right atrial size. Left Atrium Normal left atrial size. Mitral Valve Structurally normal mitral valve. Severe mitral regurgitation. Mitral annular calcification. Aortic Valve Trileaflet aortic valve. Mild aortic regurgitation. Tricuspid Valve Structurally normal tricuspid valve. moderate tricuspid regurgitation. Pulmonic Valve Structurally normal pulmonic valve. No pulmonic regurgitation. Pericardium Normal pericardium. No pericardial effusion. Aorta Normal size aortic root and proximal ascending aorta. CONCLUSIONS 1. Borderline left ventricle systolic function with inferobasal hypokinesis 2. Severe mitral regurgitation 3. Moderate tricuspid with mild aortic regurgitation. Previewed by: Dr. Rosa M Marin MD (Electronically Signed) Final Date: 27 January 2023 11:52
--- NOTE | 2023-01-27 12:45 | CC ---
CARDIAC CATHETERIZATION REPORT DATE OF SERVICE: 01/27/2023. PROCEDURES PERFORMED: Left heart catheterization, coronary angiography, and left ventriculography. PERFORMED BY: Dr. Tejal Fajardo. ANESTHESIA: Moderate conscious sedation time was 20 minutes. The patient was administered Versed and fentanyl. Oxygen saturation, hemodynamics, and EKG were monitored closely. CLINICAL INFORMATION: Ms. Gema Gloria is an 82-year-old lady with a history of hypothyroidism. She is a remarkably active lady, who is here visiting from [place] to help her sister, who had a knee surgery. She developed chest pain and shortness of breath yesterday and came into the hospital. Her D-dimer was elevated. Troponin was elevated. She had a CT angiogram, which was negative for pulmonary embolism. Troponin continued to show an upward trend up to 10.0. I saw her this morning. She was completely comfortable, hemodynamically stable, resting comfortably. Given the troponin rise after optimal hydration, I recommended coronary angiography in view of her [id number] ME. EKG revealed a sinus rhythm with a right bundle-branch block type pattern with IVCD. PROCEDURE NOTE: Under local anesthesia and strict aseptic precautions, a 6-Turkmen introducer was placed in the right radial artery. Using JL3.5 and JR4.0 catheters, I performed coronary angiography, and a pigtail catheter was used to check LV pressures, and LV-gram was performed in 30-degree BELL projection. The patient tolerated the procedure well without complication. The sheath was taken out, and TR band was applied as per protocol. Saturation in the fingers of the right hand was 95%. Details of the procedure and the results were discussed with the patient and family. CARDIAC CATHETERIZATION FINDINGS: The left ventricular end-diastolic pressure was 18 mmHg. There was no gradient across aortic valve. CORONARY ANGIOGRAPHY FINDINGS: RIGHT CORONARY ARTERY: Large dominant vessel, has minor irregularities, distally bifurcates into PDA and PLV. PLV is of a fair caliber, distally becomes a smaller vessel, minor irregularities. PDA in the [id number] section is totally occluded, seen as a flush occlusion. The caliber of the PDA is about 1.5 mm, and it is a distal/mid occlusion without much antegrade flow, and this may be the culprit lesion. LEFT MAIN CORONARY ARTERY: Short, patent vessel. No significant disease. Bifurcates into LAD and circumflex. LEFT ANTERIOR DESCENDING CORONARY ARTERY: Good-caliber vessel, gives off septal and diagonal branches, runs all the way to the apex, has minor irregularities, no significant disease. LEFT POSTERIOR CIRCUMFLEX CORONARY ARTERY: Nondominant vessel, fair-caliber vessel, gives off a distal obtuse marginal branch and then runs distally, has a small posterolateral branch. There is a left atrial circumflex branch that is free of significant disease. Circumflex is nondominant, has minor irregularities, no significant disease. LEFT VENTRICULOGRAM: This was performed in 30-degree BELL projection, revealed a normal-sized LV with [id number] mitral regurgitation and inferior wall hypokinesia involving the inferobasal and mid inferior wall. Ejection fraction is about 50% by visual inspection with moderate mitral regurgitation. IMPRESSION: This patient has a slightly elevated filling pressures. No gradient. She has a right- dominant system with total occlusion of the mid/distal posterior descending artery branch, small-caliber vessel of about 1.5 mm. No other significant disease in the left system. Ejection fraction is about 50% with inferior wall hypokinesia and moderate mitral regurgitation. RECOMMENDATIONS: Findings were discussed with the patient and her 3 daughters. I am recommending we will pursue medical therapy. The vessel is small. No intervention is necessary. The patient is hemodynamically stable and resting comfortably. My concern is mitral regurgitation. Hopefully, once she stabilizes and the infarct settles, she will be much better. We will, therefore, continue intravenous heparin and observe her carefully for the next 24 to 48 hours. We will also watch the progress of mitral regurgitation. Clinically, the patient is doing better. MMODL / IJN: [id number] /
[2023-01-27] MEDS ORDERED: ONDANSETRON 4 MG/2 ML VIAL IVP PRN (14:52)
[2023-01-27] MEDS ORDERED: guaiFENesin SYRUP 100MG/5ML 200 MG/10 ML CUP PO PRN (18:14)
[2023-01-27] MEDS ORDERED: HEPARIN SODIUM 1,000 UN/ML (10ML VL) IV PRN (18:20)
[2023-01-27] MEDS ORDERED: HEPARIN SOD,PORK IN 0.45% NACL 25,000 UNIT in 0.45% NACL 1 250ML.BAG IV SCH (18:30)
[2023-01-27] MEDS: LOSARTAN 25 MG TAB PO SCH (20:33)
[2023-01-27] MEDS ORDERED: ATORVASTATIN 80 MG TAB PO SCH (21:00)
[2023-01-27] MEDS: IPRATROPIUM-ALBUTEROL 3 ML NEB INHALATION SCH (21:52)
[2023-01-27] MEDS: BUDESONIDE 0.5 MG/2 ML NEBU INHALATION SCH (21:52)
--- NOTE | 2023-01-28 00:55 | HP ---
HISTORY AND PHYSICAL HISTORY OF PRESENT ILLNESS: She came to the hospital for chest pain, elevated troponins with a heart catheterization showed some blockages of the left diagonal artery. Echocardiogram has been ordered. Has had nausea. No vomiting. She called her doctor, came to the hospital. Chest pain this morning. Has a history of heart disease. Former cigarette smoker. History of hypertension. She denies any history of breathing issues. REVIEW OF SYSTEMS: A 14-point review of systems otherwise negative. PHYSICAL EXAMINATION: VITAL SIGNS: Stable, afebrile. CARDIOVASCULAR: S1, S2. LUNGS: Decreased breath sounds x4. HEART: Regular rate and rhythm. ABDOMEN: Soft. EXTREMITIES: No cyanosis, clubbing, or edema. NEUROLOGIC: Alert and oriented x3. ASSESSMENT: Non ST elevation myocardial infarction. Hypothyroidism. nicotine addiction. Cardiology recommends medical treatment, status post heart catheterization. Continue the aspirin, Lipitor, metoprolol. Echo was reviewed. No sensor being placed. Continue current treatment. Started on updrafts for breathing. Prognosis guarded. MMODL / IJN: [id number] /
[2023-01-28] MEDS: SODIUM CHLORIDE 0.9% 1,000 ML in EMPTY BAG 1 BAG IV SCH ×2 (02:45→18:20)
[2023-01-28] MEDS: IPRATROPIUM-ALBUTEROL 3 ML NEB INHALATION SCH ×4 (08:17→21:11)
[2023-01-28] MEDS: BUDESONIDE 0.5 MG/2 ML NEBU INHALATION SCH ×2 (08:17→21:11)
[2023-01-28] MEDS ORDERED: FUROSEMIDE 10 MG/ML 2 ML VIAL IV STA (09:14)
--- NOTE | 2023-01-28 10:03 | XR ---
EXAMINATION TYPE: XR chest 2V DATE OF EXAM: 01/28/2023 COMPARISON: 01/26/2023 HISTORY: Shortness of breath TECHNIQUE: Frontal and lateral views of the chest are obtained. FINDINGS: Scattered senescent parenchymal changes noted. Hyperinflation compatible with COPD. Pulmonary venous congestion with scattered infiltrates and small effusions may reflect underlying con gestive failure. Infiltrates of other etiology are not excluded. Correlate clinically and progress st udies are recommended. Heart size is stable. Mediastinal structures are stable and grossly unremarkable. No evidence for hilar prominence. Degenerative changes dorsal spine. IMPRESSION: 1. Pulmonary venous congestion with scattered infiltrates and small effusions may reflect underlying congestive failure. Infiltrates of other etiology are not excluded. Correlate clinically and progress studies are recommended.
[2023-01-28] MEDS: FUROSEMIDE 10 MG/ML 4 ML VIAL IV SCH ×2 (10:11→21:24)
[2023-01-28] MEDS: METOPROLOL TARTRATE 12.5 MG TAB PO SCH ×2 (10:11→21:23)
[2023-01-28] MEDS: ASPIRIN 81 MG PO SCH (10:11)
[2023-01-28 10:20] LABS: African American GFR (CKD) >90 (>60 ml/min/1.73 sqM); Anion Gap 8 mmol/L; Blood Urea Nitrogen 9 mg/dL (7-17); Calcium 8.5 mg/dL (8.4-10.2); Carbon Dioxide 21 mmol/L (22-30); Chloride 104 mmol/L (98-107); Glucose 127 mg/dL (74-99); Non-African American GFR(CKD) 89 (>60 ml/min/1.73 sqM); Potassium 3.8 mmol/L (3.5-5.1); Sodium 133 mmol/L (137-145)
[2023-01-28 10:27] LABS: NT-Pro-B-Type Natriuretic Pept 5860 pg/mL
--- NOTE | 2023-01-28 11:11 | P.PN ---
Subjective HISTORY OF PRESENT ILLNESS: This is a 82-year-old female with a past medical history significant for hypothyroidism. 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 We have been asked to see the patient in consultation for chest pain. Patient examined at the bedside. Patient resides in [place] and is up here helping a family member. She states yesterday she was at the grocery store with her [id number]. She states afterward she was carrying groceries inside the house when she be and have chest pain. She states the pain was in the middle of her chest and went up into her throat. She reports feeling diaphoretic. She reported having nausea but no vomiting. She states that she called her daughter and came to the emergency room for further evaluation. She received aspirin and nitro in the ER. She denies any chest pain or pressure this morning. She denies any history of coronary artery disease. She is a former cigarette smoker and quit smoking in 1964. She denies history of hypertension, hyperlipidemia, or diabetes. * EKG reveals sinus mechanism with right bundle branch block. No signs of acute ischemia. * Chest xray no acute cardiopulmonary disease or process. Interstitial lung disease with COPD changes. Cardiomegaly * Laboratory data: WBC 7.9. WBC 11.3. Platelet count 200. D-dimer 2.82. Sod ium 134. Potassium 3.7. BUN 14. Creatinine 0.59. Troponin 0.282. 5.320. 10.100. ProBNP 530. * Current home cardiac medications include aspirin 81 mg daily Patient is status post cardiac catheterization revealing slightly elevated filling pressures. No gradient. He has a right dominant system with total occlusion of the mid/distal posterior descending artery branch small-caliber vessel of about 1.5 mm. No other significant disease in the left system. Ech ocardiogram completed revealing ejection fraction 50-55%, basal inferior hypokinesis, mild pulmonary retention, severe mitral regurgitation, mild aortic regurgitation, and moderate tricuspid regurgitation. Patient examined this morning at the bedside. Patient's family is present. Recommendations were for DIAN today secondary to her mitral regurgitation however patient's family would like to hold off on this and have this performed in her home state of [place]. Patient denies any chest pain or pressure. She does report shortness of breath this morning and has been coughing a lot. Chest x-ray this morning reveals pulmonary venous congestion with scattered infiltrates and small effusions. PHYSICAL EXAM: VITAL SIGNS: Reviewed. GENERAL: Well-developed in no acute distress. HEENT: Head is normocephalic. Pupils are equal, round. Sclerae anicteric. Mucous membranes of the mouth are moist. Neck supple. No JVD or thyromegaly LUNGS: Respirations even and unlabored. Lungs diminished with bibasilar rales HEART: Regular rate and rhythm. S1 and S2 heard. ABDOMEN: Soft. Nondistended. Nontender. EXTREMITIES: Normal range of motion. No clubbing or cyanosis. Peripheral pulses intact. No lower extremity edema NEUROLOGIC: Awake and alert. Oriented x 3. ASSESSMENT: Non-STEMI, S/P cardiac catheterization revealing total occlusion of the mid/dis eedr PDA Severe mitral regurgitation Acute heart failure with preserved EF Hypothyroidism Former nicotine dependence, patient quit smoking in 1964 PLAN: Discontinue IV heparin Begin IV Lasix 40 mg every 12 hours Daily weights, accurate I&O, and monitoring of kidney function Add nitro paste 0.5 inches every 6 hours Further recommendations pending patient's course Nurse practitioner note has been reviewed by physician. Signing provider agrees with the documented findings, assessment, and plan of care. Objective - Vital Signs Vital signs: Vital Signs Temp 98 F 01/28/23 04:00 Pulse 84 01/28/23 08:37 Resp 17 01/28/23 08:00 BP 121/73 01/28/23 04:00 Pulse Ox 92 L 01/28/23 04:00 FiO2 21 01/27/23 21:58 Intake & Output 01/27/23 01/28/23 01/28/23 18:59 06:59 18:59 Intake Total 330 Balance 330 Intake: IV 150 Oral 180 Other: Voiding Method Toilet Toilet Toilet # Voids 1 # Bowel Movements 2 - Labs CBC & Chem 7: 01/27/23 02:24 01/28/23 09:22 Labs: Abnormal Lab Results - Last 24 Hours (Table) 01/28/23 Range/Units 09:22 Sodium 133 L (137-145) mmol/L Carbon Dioxide 21 L (22-30) mmol/L Creatinine 0.51 L (0.52-1.04) mg/dL Glucose 127 H (74-99) mg/dL
[2023-01-28] MEDS ORDERED: DILTIAZEM DRIP BOLUS FROM BAG 1 MG SOLN IV ONE (13:30)
[2023-01-28] MEDS: NITROGLYCERIN OINT 1 INCH/GM PACKET TOPICAL SCH ×3 (13:49→23:41)
[2023-01-28] MEDS: DILTIAZEM 125 MG in SODIUM CHLORIDE 0.9% 100 ML IV SCH (14:54)
[2023-01-28] MEDS: APIXABAN 5 MG TAB PO SCH ×2 (14:55→21:23)
[2023-01-28] MEDS ORDERED: FUROSEMIDE 20 MG TAB PO SCH (16:00)
[2023-01-28] MEDS ORDERED: HEPARIN SODIUM,PORCINE/PF 5,000 UNIT/0.5 ML SYRINGE SQ SCH (21:00)
[2023-01-28] MEDS: ATORVASTATIN 40 MG TAB PO SCH (21:23)
[2023-01-28] MEDS: LOSARTAN 25 MG TAB PO SCH (21:23)
[2023-01-29] MEDS: NITROGLYCERIN OINT 1 INCH/GM PACKET TOPICAL SCH ×2 (06:24→12:28)
[2023-01-29] MEDS: DILTIAZEM 125 MG in SODIUM CHLORIDE 0.9% 100 ML IV SCH (06:25)
[2023-01-29 08:37] LABS: African American GFR (CKD) >90 (>60 ml/min/1.73 sqM); Anion Gap 8 mmol/L; Blood Urea Nitrogen 12 mg/dL (7-17); Calcium 7.9 mg/dL (8.4-10.2); Carbon Dioxide 26 mmol/L (22-30); Chloride 96 mmol/L (98-107); Glucose 100 mg/dL (74-99); Non-African American GFR(CKD) 82 (>60 ml/min/1.73 sqM); Sodium 130 mmol/L (137-145)
[2023-01-29] MEDS: IPRATROPIUM-ALBUTEROL 3 ML NEB INHALATION SCH ×4 (08:49→21:43)
[2023-01-29] MEDS: BUDESONIDE 0.5 MG/2 ML NEBU INHALATION SCH ×2 (08:49→21:43)
[2023-01-29] MEDS ORDERED: FUROSEMIDE 10 MG/ML 4 ML VIAL IV STA (09:07)
[2023-01-29 09:16] LABS: Potassium 3.2 mmol/L (3.5-5.1)
[2023-01-29] MEDS: SODIUM CHLORIDE 0.9% 1,000 ML in EMPTY BAG 1 BAG IV SCH ×2 (10:32→22:44)
[2023-01-29] MEDS: APIXABAN 5 MG TAB PO SCH ×2 (10:32→20:23)
[2023-01-29] MEDS: AMIODARONE 200 MG TAB PO SCH ×2 (10:32→20:22)
[2023-01-29] MEDS: METOPROLOL TARTRATE 12.5 MG TAB PO SCH ×2 (10:32→20:23)
[2023-01-29] MEDS: ASPIRIN 81 MG PO SCH (10:32)
[2023-01-29] MEDS: FUROSEMIDE 10 MG/ML 4 ML VIAL IV SCH (12:23)
[2023-01-29] MEDS ORDERED: Potassium Replacement Protocol 1 EACH MISC MISCELLANE PRN (12:26)
--- NOTE | 2023-01-29 12:37 | P.PN ---
Subjective HISTORY OF PRESENT ILLNESS: This is a 82-year-old female with a past medical history significant for hypothyroidism. Patient does not follow with a therapist radiation. We have been asked to see the patient in consultation for chest pain. Patient examined at the bedside. Patient resides in [place] and is up here helping a family member. She states yesterday she was at the grocery store with her [id number]. She states afterward she was carrying groceries inside the house when she be and have chest pain. She states the pain was in the middle of her chest and went up into her throat. She reports feeling diaphoretic. She reported having nausea but no vomiting. She states that she called her daughter and came to the emergency room for further evaluation. She received aspirin and nitro in the ER. She denies any chest pain or pressure this morning. She denies any history of coronary artery disease. She is a former cigarette smoker and quit smoking in 1964. She denies history of hypertension, hyperlipidemia, or diabetes. * EKG reveals sinus mechanism with right bundle branch block. No signs of acute ischemia. * Chest xray no acute cardiopulmonary disease or process. Interstitial lung disease with COPD changes. Cardiomegaly * Laboratory data: WBC 7.9. WBC 11.3. Platelet count 200. D-dimer 2.82. Sod ium 134. Potassium 3.7. BUN 14. Creatinine 0.59. Troponin 0.282. 5.320. 10.100. ProBNP 530. * Current home cardiac medications include aspirin 81 mg daily Patient is status post cardiac catheterization revealing slightly elevated filling pressures. No gradient. He has a right dominant system with total occlusion of the mid/distal posterior descending artery branch small-caliber vessel of about 1.5 mm. No other significant disease in the left system. Ech ocardiogram completed revealing ejection fraction 50-55%, basal inferior hypokinesis, mild pulmonary retention, severe mitral regurgitation, mild aortic regurgitation, and moderate tricuspid regurgitation. Patient examined this morning at the bedside. Patient's family is present. Recommendations were for DIAN today secondary to her mitral regurgitation however patient's family would like to hold off on this and have this performed in her home state of [place]. Patient denies any chest pain or pressure. She does report shortness of breath this morning and has been coughing a lot. Chest x-ray this morning reveals pulmonary venous congestion with scattered infiltrates and small effusions. 01/29/2023 Patient examined this morning at the bedside. Patient denies chest pain or pressure. She denies shortness of breath. She remains on IV Lasix. She states she has been up and doing to the bathroom without difficulty. The patient went into A. fib with RVR yesterday. She was started on oral anticoagulation. She was also started on IV Cardizem. She remains in atrial fib relation this morning with a heart rate in the 70s. PHYSICAL EXAM: VITAL SIGNS: Reviewed. GENERAL: Well-developed in no acute distress. HEENT: Head is normocephalic. Pupils are equal, round. Sclerae anicteric. Mucous membranes of the mouth are moist. Neck supple. No JVD or thyromegaly LUNGS: Respirations even and unlabored. Lungs diminished HEART: Irregular rate and rhythm. S1 and S2 heard. ABDOMEN: Soft. Nondistended. Nontender. EXTREMITIES: Normal range of motion. No clubbing or cyanosis. Peripheral pulses intact. No lower extremity edema NEUROLOGIC: Awake and alert. Oriented x 3. ASSESSMENT: Non-STEMI, S/P cardiac catheterization revealing total occlusion of the mid/distal PDA New-onset atrial fibrillation with RVR Severe mitral regurgitation Acute heart failure with preserved EF Hypothyroidism Former nicotine dependence, patient quit smoking in 1964 PLAN: Discontinue IV Cardizem Add oral amiodarone 200 mg twice a day Discontinue IV Lasix Begin oral Lasix 40 mg twice a day Patient to receive a one-time dose of Zaroxolyn tomorrow morning of 2.5 mg Continue to monitor patient overnight and anticipate discharge home tomorrow morning if patient remains stable Nurse practitioner note has been reviewed by physician. Signing provider agrees with the documented findings, assessment, and plan of care. Objective - Vital Signs Vital signs: Vital Signs Temp 100.2 F H 01/29/23 12:25 Pulse 91 01/29/23 12:25 Resp 16 01/29/23 12:25 BP 92/57 01/29/23 12:25 Pulse Ox 96 01/29/23 12:25 FiO2 21 01/27/23 21:58 Intake & Output 01/28/23 01/29/23 01/29/23 18:59 06:59 18:59 Intake Total 180 656.375 240 Balance 180 656.375 240 Intake: Intake, IV Titration 116.375 Amount Diltiazem 125 mg In 116.375 Sodium Chloride 0.9% 100 ml @ 7.5 MG/HR 7.5 mls/hr IV .[id number] [facility] Rx#: [id number] Oral 180 540 240 Other: Voiding Method Toilet Toilet Toilet # Voids 1 2 - Labs CBC & Chem 7: 01/27/23 02:24 01/29/23 07:23 Labs: Abnormal Lab Results - Last 24 Hours (Table) 01/29/23 Range/Units 07:23 Sodium 130 L (137-145) mmol/L Potassium 3.2 L (3.5-5.1) mmol/L Chloride 96 L (98-107) mmol/L Glucose 100 H (74-99) mg/dL Calcium 7.9 L (8.4-10.2) mg/dL
[2023-01-29] MEDS: POTASSIUM CHLORIDE ER 20 MEQ TAB.ER PO SCH ×2 (13:47→16:27)
--- NOTE | 2023-01-29 14:12 | XR ---
EXAMINATION TYPE: XR chest 1V DATE OF EXAM: 01/29/2023 2:06 PM COMPARISON: Chest radiographs from 01/28/2023 TECHNIQUE: XR chest 1V Frontal view of the chest. CLINICAL INDICATION:Female, 82 years old with history of fever; FINDINGS: Lungs/Pleura: Increased reticular and hazy opacities in lung bases could represent pulmonary vascular congestion versus atelectasis. Blunting of the costophrenic angles. There is no evidence of pleural effusion, focal consolidation, or pneumothorax. Pulmonary vascularity: Pulmonary vascular congestion. Heart/mediastinum: Cardiomediastinal silhouette is enlarged and stable. Musculoskeletal: No acute osseous pathology. IMPRESSION: Cardiomegaly, pulmonary vascular congestion and bilateral pleural effusions. Correlate with BNP for c ongestive heart failure. No focal consolidation.
[2023-01-29] MEDS: FUROSEMIDE 40 MG TAB PO SCH (16:27)
--- NOTE | 2023-01-29 17:21 | PN ---
PROGRESS NOTE DATE OF SERVICE: 01/28/2023 SUBJECTIVE: An 82-year-old white female, hypothyroidism, COPD as well as pulmonary hypertension. Discussed with her about taking nebulizer treatments at home. She is doing a little bit better. She wants to go home tomorrow. OBJECTIVE: CARDIOVASCULAR: S1 and S2. LUNGS: Clear. GI: Soft. HEMATOLOGY: Negative Homans. PSYCHIATRIC: Fair mood and affect. NEUROLOGIC: Cranial nerves are intact. ASSESSMENT AND PLAN: Cardiology has started her, for CHF, on Lasix with IV today. She has interstitial lung disease. We will see what the Cardiology wants to do with the CHF in the next 24 hours. Possible discharge home tomorrow on medications for heart/coronary artery disease status post heart catheterization, interstitial lung disease, and pulmonary hypertension. Continue on her medications as mentioned above. Prognosis is guarded. Possible going home soon. MMODL / NURYN: [id number] /
[2023-01-29] MEDS: LOSARTAN 25 MG TAB PO SCH (20:23)
[2023-01-29] MEDS: ATORVASTATIN 40 MG TAB PO SCH (20:23)
--- NOTE | 2023-01-29 22:08 | P.CONS ---
History of Present Illness - Reason for Consult Consult date: 01/29/23 - History of Present Illness Patient is a 82-year-old female presenting to the hospital 3 days ago on 01/26/2023 for evaluation of chest pain the patient's symptoms started around 3 PM when the patient was at the store of a [employer] like brief episode of sharp chest pain dizziness and sweating patient was describing her chest pain to be more of her chest and is about 5-10 with sweating denies any chills no headache or URI symptoms some nausea but no vomiting no abdominal pain or any diarrhea patient on presentation to the hospital was afebrile she did have a low-grade fever of 99.9 followed by 100.2 F at noon that has prompted this infectious disease consultation patient was not tachycardic or hypertensive patient did have a normal white count however no CBC was done today patient did have elevated troponin and has been managed by cardiology in this patient who did have a cardiac catheterization with a 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, patient currently denies having any cough or sputum production patient denies any abdominal pain no diarrhea no burning or frequency of urine no constipation patient did have a negative COVID and influenza RSV PCR chest x-ray completed this afternoon shows cardiomegaly pulmonary vascular congestion no focal consolidation Past Medical History Past Medical History: Thyroid Disorder History of Any Multi-Drug Resistant Organisms: None Reported Past Surgical History: Breast Surgery, Hysterectomy Additional Past Surgical History / Comment(s): hemorrhoids Past Anesthesia/Blood Transfusion Reactions: No Reported Reaction Past Psychological History: No Psychological Hx Reported Smoking Status: Never smoker Past Alcohol Use History: Occasional Past Drug Use History: None Reported - Past Family History Father Family Medical History: Myocardial Infarction ([place]) Medications and Allergies Home Medications Medication Instructions Recorded Confirmed Type Aspirin EC [Ecotrin Low Dose] 81 mg PO DAILY 01/26/23 01/26/23 History Betamethasone Dipropionate 1 applic TOPICAL BID PRN 01/26/23 01/26/23 History [Diprolene AF 0.05% Cream] Cholecalciferol [Vitamin D3 (25 25 mcg PO DAILY 01/26/23 01/26/23 History Mcg = 1000 Iu)] Cyanocobalamin (Vitamin B-12) 1,000 mcg PO DAILY 01/26/23 01/26/23 History [Vitamin B-12] Levothyroxine Sodium [Synthroid] 100 mcg PO DAILY 01/26/23 01/26/23 History Amiodarone [Cordarone] 200 mg PO BID 30 Days #60 tab 01/29/23 Rx Apixaban [Eliquis] 5 mg PO BID 30 Days #60 tab 01/29/23 Rx Atorvastatin [Lipitor] 40 mg PO HS 90 Days #90 tab 01/29/23 Rx Budesonide [Pulmicort] 0.5 mg INHALATION RT-BID 30 Days 01/29/23 Rx #60 ml Furosemide [Lasix] 40 mg PO BID@0900,1600 30 Days #60 01/29/23 Rx tab Ipratropium-Albuterol Nebulize 3 ml INHALATION RT-QID 30 Days 01/29/23 Rx [Duoneb 0.5 mg-3 mg/3 ml Soln] #120 each Losartan [Cozaar] 25 mg PO HS 90 Days #90 tab 01/29/23 Rx Metoprolol Tartrate [Lopressor] 12.5 mg PO BID 30 Days #60 tab 01/29/23 Rx Allergies Allergy/AdvReac Type Severity Reaction Status Date / Time No Known Allergies Allergy Verified 01/26/23 18:35 Physical Exam Vitals: Vital Signs Temp Pulse Pulse Pulse Resp BP Pulse Ox 01/29/23 15:48 90 18 01/29/23 15:38 90 18 01/29/23 12:25 100.2 F H 91 16 92/57 96 01/29/23 10:30 99.9 F H 77 18 97/56 88 L 01/29/23 09:02 78 16 01/29/23 08:49 76 16 100 01/29/23 03:36 98.7 F 75 16 92/55 90 L 01/29/23 01:41 81 14 01/28/23 23:41 98.7 F 81 14 95/59 92 L 01/28/23 21:32 100 01/28/23 21:11 104 H 01/28/23 20:00 98.3 F 93 17 93/54 93 L 01/28/23 17:26 105 H 17 91/53 93 L Intake and Output 01/29/23 01/29/23 01/29/23 06:59 14:59 22:59 Intake Total 116.375 720 Balance 116.375 720 Intake: Intake, IV Titration 116.375 Amount Diltiazem 125 mg In 116.375 Sodium Chloride 0.9% 100 ml @ 7.5 MG/HR 7.5 mls/hr IV .[id number] [facility] Rx#: [id number] Oral 720 Other: Voiding Method Toilet Toilet # Voids 2 3 Results CBC & Chem 7: 01/27/23 02:24 01/29/23 07:23 Labs: Abnormal Lab Results - Last 24 Hours (Table) 01/29/23 Range/Units 07:23 Sodium 130 L (137-145) mmol/L Potassium 3.2 L (3.5-5.1) mmol/L Chloride 96 L (98-107) mmol/L Glucose 100 H (74-99) mg/dL Calcium 7.9 L (8.4-10.2) mg/dL Assessment and Plan Plan: 1patient with low-grade fever 100.2 F this afternoon and this patient was in the hospital with chest pain has been diagnosed with non-ST elevated [place] status postcardiac cath with evidence of total occlusion of the PDA and currently treated medically, patient currently does not look toxic did have a normal white count on admission in the last 2 days did have negative influenza and COVID testing CT angiogram of the chest was negative for any pneumonia chest x-ray showed done today did shows mostly pulmonary vascular congestion no consolidation questionably reactive 2-we will obtain blood culture CRP procalcitonin 3-check a urine culture to complete the work-up 4-we will monitor closely off antibiotic as the patient does not look toxic and no obvious focus of infection We will follow on clinical condition and cultures to further adjust medication if needed Thank you for this consultation we will follow the patient along with you Dictation was produced using [employer] dictation software. please excuse any grammatical, word or spelling errors. Time with Patient: Greater than 30
[2023-01-29 22:29] VITALS: RESP 18
[2023-01-30] MEDS ORDERED: LEVOTHYROXINE 100 MCG TAB PO SCH (06:30)
[2023-01-30] MEDS: BUDESONIDE 0.5 MG/2 ML NEBU INHALATION SCH (07:29)
[2023-01-30] MEDS: IPRATROPIUM-ALBUTEROL 3 ML NEB INHALATION SCH ×3 (07:29→15:19)
[2023-01-30 07:54] VITALS: BP 102/63; TEMP 99.1
[2023-01-30] MEDS ORDERED: MAGNESIUM CITRATE 296 ML BOTTLE PO ONE (08:25)
[2023-01-30] MEDS ORDERED: metOLazone 2.5 MG TAB PO ONE (09:00)
[2023-01-30] MEDS: APIXABAN 5 MG TAB PO SCH (09:23)
[2023-01-30] MEDS: ASPIRIN 81 MG PO SCH (09:23)
[2023-01-30] MEDS: FUROSEMIDE 40 MG TAB PO SCH ×2 (09:23→16:05)
[2023-01-30] MEDS: METOPROLOL TARTRATE 12.5 MG TAB PO SCH (09:23)
[2023-01-30] MEDS: AMIODARONE 200 MG TAB PO SCH (09:23)
[2023-01-30 09:27] LABS: RBC,Urine 4 /hpf (0-5); Squamous Epithelial Cell,Urine 1 /hpf (0-4); WBC,Urine 1 /hpf (0-5)
[2023-01-30 09:42] LABS: Anisocytosis Slight; Basophils % (A) 0 %; Eosinophils # (A) 0.2 k/uL (0-0.7); Eosinophils % (A) 3 %; HCT 32.5 % (34.0-46.0); HGB 10.5 gm/dL (11.4-16.0); Lymphocytes # (A) 0.7 k/uL (1.0-4.8); Lymphocytes % (A) 14 %; MCH 28.4 pg (25.0-35.0); MCHC 32.3 g/dL (31.0-37.0); MCV 87.7 fL (80.0-100.0); Mean Platelet Volume 9.7; Monocytes # (A) 0.4 k/uL (0-1.0); Monocytes % (A) 8 %; Neutrophils # (A) 3.7 k/uL (1.3-7.7); Neutrophils % (A) 73 %; Platelet Count 213 k/uL (150-450); WBC 5.2 k/uL (3.8-10.6)
[2023-01-30 09:44] LABS: Color,Urine Yellow
[2023-01-30 09:45] LABS: Appearance,Urine Clear (Clear); Bilirubin,Urine Negative (Negative); Blood,Urine Small (Negative); Glucose,Urine (UA) Negative (Negative); Ketones,Urine Negative (Negative); Leukocyte Esterase,Urine Small (Negative); Nitrite,Urine Negative (Negative); PH, Urine 6.5 (5.0-8.0); Protein,Urine Negative (Negative)
[2023-01-30 10:11] LABS: ALT 64 U/L (4-34); AST 100 U/L (14-36); African American GFR (CKD) >90 (>60 ml/min/1.73 sqM); Alkaline Phosphatase 118 U/L (38-126); Anion Gap 8 mmol/L; Blood Urea Nitrogen 11 mg/dL (7-17); Carbon Dioxide 27 mmol/L (22-30); Chloride 94 mmol/L (98-107); Glucose 107 mg/dL (74-99); Non-African American GFR(CKD) 87 (>60 ml/min/1.73 sqM); Potassium 3.3 mmol/L (3.5-5.1); Sodium 129 mmol/L (137-145); Total Bilirubin 0.7 mg/dL (0.2-1.3); Total Protein 5.7 g/dL (6.3-8.2)
[2023-01-30 10:27] LABS: C Reactive Protein 13.4 mg/dL (<1.0)
[2023-01-30] MEDS ORDERED: Potassium Replacement Protocol 1 EACH MISC MISCELLANE PRN (10:31)
[2023-01-30] MEDS: POTASSIUM CHLORIDE ER 20 MEQ TAB.ER PO SCH ×2 (11:33→16:03)
--- NOTE | 2023-01-30 13:12 | P.PN ---
Subjective HISTORY OF PRESENT ILLNESS: This is a 82-year-old female with a past medical history significant for hypothyroidism. Patient does not follow with a wood flour miller. We have been asked to see the patient in consultation for chest pain. Patient examined at the bedside. Patient resides in [place] and is up here helping a family member. She states yesterday she was at the grocery store with her [id number]. She states afterward she was carrying groceries inside the house when she be and have chest pain. She states the pain was in the middle of her chest and went up into her throat. She reports feeling diaphoretic. She reported having nausea but no vomiting. She states that she called her daughter and came to the emergency room for further evaluation. She received aspirin and nitro in the ER. She denies any chest pain or pressure this morning. She denies any history of coronary artery disease. She is a former cigarette smoker and quit smoking in 1964. She denies history of hypertension, hyperlipidemia, or diabetes. * EKG reveals sinus mechanism with right bundle branch block. No signs of acute ischemia. * Chest xray no acute cardiopulmonary disease or process. Interstitial lung disease with COPD changes. Cardiomegaly * Laboratory data: WBC 7.9. WBC 11.3. Platelet count 200. D-dimer 2.82. Sod ium 134. Potassium 3.7. BUN 14. Creatinine 0.59. Troponin 0.282. 5.320. 10.100. ProBNP 530. * Current home cardiac medications include aspirin 81 mg daily Patient is status post cardiac catheterization revealing slightly elevated filling pressures. No gradient. He has a right dominant system with total occlusion of the mid/distal posterior descending artery branch small-caliber vessel of about 1.5 mm. No other significant disease in the left system. Ech ocardiogram completed revealing ejection fraction 50-55%, basal inferior hypokinesis, mild pulmonary retention, severe mitral regurgitation, mild aortic regurgitation, and moderate tricuspid regurgitation. Patient examined this morning at the bedside. Patient's family is present. Recommendations were for DIAN today secondary to her mitral regurgitation however patient's family would like to hold off on this and have this performed in her home state of [place]. Patient denies any chest pain or pressure. She does report shortness of breath this morning and has been coughing a lot. Chest x-ray this morning reveals pulmonary venous congestion with scattered infiltrates and small effusions. 01/29/2023 Patient examined this morning at the bedside. Patient denies chest pain or pressure. She denies shortness of breath. She remains on IV Lasix. She states she has been up and doing to the bathroom without difficulty. The patient went into A. fib with RVR yesterday. She was started on oral anticoagulation. She was also started on IV Cardizem. She remains in atrial fib relation this morning with a heart rate in the 70s. 01/30/2023 Patient examined this morning at the bedside. Patient denies chest pain or pressure. Denies SOB. Telemetry reveals atrial fibrillation with controlled ventricular rate. Vital signs are stable. Patient remains on 2 L nasal cannula with oxygen saturations greater than 92%. PHYSICAL EXAM: VITAL SIGNS: Reviewed. GENERAL: Well-developed in no acute distress. HEENT: Head is normocephalic. Pupils are equal, round. Sclerae anicteric. Mucous membranes of the mouth are moist. Neck supple. No JVD or thyromegaly LUNGS: Respirations even and unlabored. Lungs diminished HEART: Irregular rate and rhythm. S1 and S2 heard. ABDOMEN: Soft. Nondistended. Nontender. EXTREMITIES: Normal range of motion. No clubbing or cyanosis. Peripheral pulses intact. No lower extremity edema NEUROLOGIC: Awake and alert. Oriented x 3. ASSESSMENT: Non-STEMI, S/P cardiac catheterization revealing total occlusion of the m id/distal PDA New-onset atrial fibrillation with RVR Severe mitral regurgitation Acute heart failure with preserved EF Hypothyroidism Former nicotine dependence, patient quit smoking in 1964 PLAN: Continue current cardiac medications Recommend to observe mitral valve and repeat echo in 4-6 weeks Patient has an appointment tomorrow with a wood flour miller in [place] She is stable for discharge home today Nurse practitioner note has been reviewed by physician. Signing provider agrees with the documented findings, assessment, and plan of care. Objective - Vital Signs Vital signs: Vital Signs Temp 99.1 F 01/30/23 07:53 Pulse 89 01/30/23 07:53 Resp 18 01/30/23 07:53 BP 102/63 01/30/23 07:53 Pulse Ox 95 01/30/23 07:53 FiO2 21 01/27/23 21:58 Intake & Output 01/29/23 01/30/23 01/30/23 18:59 06:59 18:59 Intake Total 720 240 Balance 720 240 Intake: Oral 720 240 Other: Voiding Method Toilet Toilet # Voids 3 1 - Labs CBC & Chem 7: 01/30/23 02:06 01/30/23 09:06 Labs: Abnormal Lab Results - Last 24 Hours (Table) 01/30/23 Range/Units 02:06 RBC 3.70 L (3.80-5.40) m/uL Hgb 10.5 L (11.4-16.0) gm/dL Hct 32.5 L (34.0-46.0) % RDW 16.0 H (11.5-15.5) % Lymphocytes # 0.7 L (1.0-4.8) k/uL
[2023-01-30 15:31] VITALS: PULSE 86
== END 2023-01-30 16:38 | disposition home or self-care (01) | DRG 280 ==
LOC: EC 16:43 → 3SCARD 20:13
PROVIDERS: ADMIT Family Medicine; ATTEND Family Medicine
PROC: 4A023N7 Measurement of Cardiac Sampling and Pressure, Left Heart, Percutaneous Approach (ICD-10-PCS; principal; 2023-01-26)
PROC: B2111ZZ Fluoroscopy of Multiple Coronary Arteries using Low Osmolar Contrast (ICD-10-PCS; 2023-01-26)
PROC: B2151ZZ Fluoroscopy of Left Heart using Low Osmolar Contrast (ICD-10-PCS; 2023-01-26)
PROC: B246ZZ4 Ultrasonography of Right and Left Heart, Transesophageal (ICD-10-PCS; 2023-01-27)
DX: I21.4 Non-ST elevation (NSTEMI) myocardial infarction (principal); I50.31 Acute diastolic (congestive) heart failure; J84.9 Interstitial pulmonary disease, unspecified; I11.0 Hypertensive heart disease with heart failure; I95.9 Hypotension, unspecified; J44.9 Chronic obstructive pulmonary disease, unspecified; E03.9 Hypothyroidism, unspecified; I45.10 Unspecified right bundle-branch block; I48.91 Unspecified atrial fibrillation; I27.20 Pulmonary hypertension, unspecified; I08.3 Combined rheumatic disorders of mitral, aortic and tricuspid valves; Z79.890 Hormone replacement therapy; Z20.822 Contact with and (suspected) exposure to COVID-19; Z87.891 Personal history of nicotine dependence; Z79.01 Long term (current) use of anticoagulants; Z79.82 Long term (current) use of aspirin; Z79.899 Other long term (current) drug therapy; Z82.49 Family history of ischemic heart disease and other diseases of the circulatory system; Z90.710 Acquired absence of both cervix and uterus; Z87.19 Personal history of other diseases of the digestive system
CPT/HCPCS: 36415; 71045; 71046; 71275; 80048; 80053; 81001; 83735; 83880; 84145; 84443; 84484; 85025; 85379; 85610; 85730; 86140; 87040; 87636; 93005; 93306; 93458; 94640; 94760; 96361; 96365; 96366; 99285